=== PATIENT | female | born 1995 | race Caucasian/White ===

== ENCOUNTER 2019-04-09 19:07 | Emergency (ER) | payer MEDICAID ==
[2019-04-09 19:24] LABS: Appearance CLEAR (CLEAR); Bilirubin NEGATIVE (NEGATIVE); Blood NEGATIVE Ery/ul (0-5); Epithelial Cells RARE /HPF (FEW); Glucose NEGATIVE (NEGATIVE); Ketones NEGATIVE (NEGATIVE); Leukocyte Esterase TRACE (NEGATIVE); Mucus SLIGHT /HPF (NEGATIVE); Nitrite NEGATIVE (NEGATIVE); Protein,Urine Dip NEGATIVE (Negative); Specific Gravity 1.017 (1.005-1.025); Urobilinogen NEGATIVE mg/dL (0-1)
[2019-04-09] MEDS ORDERED: TORAdol 30 mg Injection IV ONE (19:34)
[2019-04-09] MEDS ORDERED: Sodium Chloride 0.9% 1000 ML 1,000 ML IV STA (19:34)
[2019-04-09] MEDS ORDERED: MORPHINE SULFATE 4 MG INJ IV ONE ×2 (19:34→21:34)
[2019-04-09] MEDS ORDERED: BENADRYL 50 MG/ML IV ONE (19:34)
--- NOTE | 2019-04-09 19:37 | ERPHSYRPT ---
- History of Present Illness Time Seen by Provider: 04/09/19 19:20 Historian: patient Exam Limitations: no limitations Patient Subjective Stated Complaint: pt states she has been having pain in the rt lower quad for 2 weeks. states the pain has been worse since last night. states she had an ectopic 2 yrs ago on the lt and this feels similar Triage Nursing Assessment: pt alert and oreinted, answers questions approp. pt ambulatory with steady gait noted. respirations nonlabored with lungs cta. skin pink wamr and dry. bowel sounds present in all 4 quads. Physician History: Patient has had right sided abdominal pain, worse at 03:00 on 04/09/2019. Pain has been intermittent and sharp in nature. Patient did not get evaluated anywhere or by anyone until this evening's emergency department visit. Timing/Duration: week(s) (2) Activities at Onset: activity (minimal exertion such as bending to sexual intercourse with her ) Abdominal Pain Onset Location: RUQ, RLQ (main location currently) Pain Radiation: RUQ, groin (right side), other (suprapubic) Severity of Pain-Max: severe Severity of Pain-Current: moderate Modifying Factors: Worsens With: movement, palpation, position Associated Symptoms: No back, No chest pain, No diaphoresis, No diarrhea, No fever/chills, No fatigue, No headache, No heartburn, No loss of appetite, No nausea, No neck pain, No rash, No shortness of breath, No syncope, No vomiting, No weakness Previous symptoms: same symptoms as today (had an ectopic requiring surgery on the left side two years ago), no recent treatment Allergies/Adverse Reactions: latex Allergy (Verified 04/09/19 19:28) Hx Tetanus, Diphtheria Vaccination/Date Given: Yes Hx Influenza Vaccination/Date Given: No Hx Pneumococcal Vaccination/Date Given: No Immunizations Up to Date: Yes - Review of Systems Constitutional: No Fever, No Chills, No Fatigue Eyes: No Symptoms Ears, Nose, & Throat: No Symptoms Respiratory: No Cough, No Dyspnea Cardiac: No Chest Pain, No Edema, No Palpitations, No Syncope Abdominal/Gastrointestinal: Abdominal Pain, No Nausea, No Vomiting, No Diarrhea , No Constipation, No Hematemesis, No Hematochezia, No Melena Genitourinary Symptoms: Vaginal Discharge, No Dysuria, No Frequency, No Hematuria, No Urgency, No Urinary Retention, No Flank Pain, No Vaginal Bleeding Musculoskeletal: No Back Pain, No Neck Pain Skin: No Rash Neurological: No Dizziness, No Focal Weakness, No Headache, No Paralysis, No Sensory Changes Psychological: No Symptoms Endocrine: No Symptoms Hematologic/Lymphatic: No Easy Bleeding, No Easy Bruising All Other Systems: Reviewed and Negative - Past Medical History Pertinent Past Medical History: Yes Other Medical History: hx of ectopic 2 yrs ago on lt - Past Surgical History Past Surgical History: Yes Female Surgical History: Other Other Surgical History: lt fallopian tube removed after ectopic - Social History Smoking Status: Former smoker Exposure to second hand smoke: Yes Drug Use: none Patient Lives Alone: No - Female History Hx Last Menstrual Period: 02/13/19 Hx Now: No (neg home test) - Nursing Vital Signs Nursing Vital Signs: Initial Vital Signs Temperature 98.5 F 04/09/19 19:15 Pulse Rate 75 04/09/19 19:15 Respiratory Rate 16 04/09/19 19:15 Blood Pressure 140/93 04/09/19 19:15 O2 Sat by Pulse Oximetry 100 04/09/19 19:15 Pain Scale Pain Intensity 2 - Physical Exam General Appearance: no apparent distress, alert Eye Exam: PERRL/EOMI, eyes nml inspection, No scleral icterus, No pale conjunctivae Ears, Nose, Throat Exam: normal ENT inspection, pharynx normal, moist mucous membranes Neck Exam: normal inspection, non-tender, supple, full range of motion, No meningismus, No Brudzinski, No lymphadenopathy Respiratory Exam: normal breath sounds, lungs clear, airway intact, No respiratory distress, No diminished breath sounds, No accessory muscle use, No prolonged expirations, No crackles/rales, No rhonchi, No wheezing, No stridor Cardiovascular Exam: regular rate/rhythm, normal heart sounds, normal peripheral pulses, capillary refill <2 sec Gastrointestinal/Abdomen Exam: soft, normal bowel sounds, tenderness (RLQ), No distention, No mass, No guarding, No rebound Pelvic Exam: normal external exam, other (chaperoned by Laurel Alcazar RN), No adnexal tenderness, No adnexal mass, No mass, No cervical motion tenderness, No vaginal bleeding, No uterine tenderness, No vaginal discharge Back Exam: normal inspection, normal range of motion, No CVA tenderness, No vertebral tenderness, No rash Extremity Exam: normal inspection, normal range of motion, pelvis stable, No calf tenderness, No eloy's sign, No pedal edema, No swelling Neurologic Exam: alert, oriented x 3, cooperative, 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 Liver: Periportal edema. Otherwise unremarkable. Gallbladder bile ducts: Unremarkable. Pancreas: Unremarkable. Spleen: Unremarkable. Adrenal, kidneys , ureters, stomach, and bowel: Unremarkable with no traction. Appendix no evidence of appendicitis. Intraperitoneal: Minimal free fluid in the pelvis. No free air. Vasculature: Unremarkable. Lymph nodes: No enlarged lymph nodes. Bladder: Unremarkable. Reproductive: Unremarkable./Joints: Unremarkable. No acute fracture. Soft tissue: Unremarkable. Overall impression: No evidence of appendicitis. Periportal edema.) - Radiology Ultrasound Exam Pelvis Ultrasound: negative, No Torsion/Nml Flow Ordered Tests: Active Orders 24 hr Category Date Time Status IV Insertion STAT Care 04/09/19 19:24 Active NPO (ED) STAT Care 04/09/19 19:34 Active Pelvic Exam Assist STAT Care 04/09/19 19:34 Active ABDOMEN AND PELVIS W CONTRAST [CT] Stat Exams 04/09/19 22:22 Taken PELVIC [US] Stat Exams 04/09/19 20:14 Taken AMYLASE Stat Lab 04/09/19 19:54 Completed CBC W DIFF Stat Lab 04/09/19 19:54 Completed CMP Stat Lab 04/09/19 19:54 Completed HCG,QUALITATIVE URINE Stat Lab 04/09/19 19:21 Completed LIPASE Stat Lab 04/09/19 19:54 Completed Lactic Acid Stat Lab 04/09/19 21:38 Completed PROTIME WITH INR Stat Lab 04/09/19 19:54 Completed TROPONIN Q3H Lab 04/09/19 19:54 Completed TROPONIN Q3H Lab 04/10/19 01:45 Ordered TROPONIN Q3H Lab 04/10/19 04:45 Ordered TROPONIN Q3H Lab 04/10/19 07:45 Ordered UA W/RFX UR CULTURE Stat Lab 04/09/19 19:21 Completed Urine Triage Profile Stat Lab 04/09/19 19:49 Completed Wet Prep Stat Lab 04/09/19 19:35 Completed Medication Summary Discontinued Medications Generic Name Dose Route Start Last Admin Trade Name Freq PRN Reason Stop Dose Admin Diphenhydramine HCl 25 mg 04/09/19 19:34 04/09/19 19:49 Benadryl 50 Mg/Ml IV 04/09/19 19:35 25 mg STAT ONE Administration Diphenhydramine HCl Confirm 04/09/19 19:39 Benadryl 50 Mg/Ml Administered 04/09/19 19:40 Dose 50 mg .ROUTE .STK-MED ONE Sodium Chloride 1,000 mls @ 999 mls/hr 04/09/19 19:34 04/09/19 20:49 Sodium Chloride 0.9% 1000 Ml IV 04/09/19 20:34 Infused .Q1H1M STA Infusion Sodium Chloride Confirm 04/09/19 19:41 Sodium Chloride 0.9% 1000 Ml Administered 04/09/19 19:42 Dose 1,000 mls @ ud .ROUTE .STK-MED ONE Ketorolac Tromethamine 30 mg 04/09/19 19:34 04/09/19 19:48 Toradol 30 Mg Injection IV 04/09/19 19:35 30 mg STAT ONE Administration Ketorolac Tromethamine Confirm 04/09/19 19:40 Toradol 30 Mg Injection Administered 04/09/19 19:41 Dose 30 mg .ROUTE .STK-MED ONE Morphine Sulfate 4 mg 04/09/19 19:34 04/09/19 19:47 Morphine Sulfate 4 Mg Inj IV 04/09/19 19:35 4 mg STAT ONE Administration Morphine Sulfate Confirm 04/09/19 19:41 Morphine Sulfate 4 Mg Inj Administered 04/09/19 19:42 Dose 4 mg .ROUTE .STK-MED ONE Morphine Sulfate 4 mg 04/09/19 21:34 04/09/19 21:38 Morphine Sulfate 4 Mg Inj IV 04/09/19 21:35 4 mg STAT ONE Administration Morphine Sulfate Confirm 04/09/19 21:37 Morphine Sulfate 4 Mg Inj Administered 04/09/19 21:38 Dose 4 mg .ROUTE .STK-MED ONE Lab/Rad Data: Laboratory Result Diagrams 04/09/19 19:54 04/09/19 19:54 Laboratory Results 04/09/19 04/09/19 04/09/19 Range/Units 21:38 19:54 19:54 WBC (4.0-10.5) K/mm3 RBC (4.1-5.4) M/mm3 Hgb (12.0-16.0) gm/dl Hct (35-47) % MCV (78-100) fl MCH (26-32) pg MCHC (32-36) g/dl RDW (11.5-14.0) % Plt Count (150-450) K/mm3 MPV (6-9.5) fl Gran % (36.0-66.0) % Eos # (Auto) (0-0.5) Absolute Lymphs (auto) (1.0-4.6) Absolute Monos (auto) (0.0-1.3) Lymphocytes % (24.0-44.0) % Monocytes % (0.0-12.0) % Eosinophils % (0.00-5.0) % Basophils % (0.0-0.4) % Absolute Granulocytes (1.4-6.9) Basophils # (0-0.4) PT 12.7 H (9.95-12.35) SECONDS INR 1.12 (0.8-3.0) Sodium (137-145) mmol/L Potassium (3.5-5.1) mmol/L Chloride (98-107) mmol/L Carbon Dioxide (22-30) mmol/L Anion Gap (5-15) MEQ/L BUN (7-17) mg/dL Creatinine (0.52-1.04) mg/dL Estimated GFR ML/MIN Glucose (74-106) mg/dL Lactic Acid 1.0 (0.4-2.0) Calcium (8.4-10.2) mg/dL Total Bilirubin (0.2-1.3) mg/dL AST (14-36) U/L ALT (0-35) U/L Alkaline Phosphatase (38-126) U/L Troponin I < 0.012 (0.000-0.034) ng/mL Serum Total Protein (6.3-8.2) g/dL Albumin (3.5-5.0) g/dL Amylase (30-110) U/L Lipase (23-300) U/L Urine Color (YELLOW) Urine Appearance (CLEAR) Urine pH (5-6) Ur Specific [place] (1.005-1.025) Urine Protein (Negative) Urine Ketones (NEGATIVE) Urine Blood (0-5) Romeo/ul Urine Nitrite (NEGATIVE) Urine Bilirubin (NEGATIVE) Urine Urobilinogen (0-1) mg/dL Ur Leukocyte Esterase (NEGATIVE) Urine WBC (Auto) (0-5) /HPF Urine RBC (Auto) (0-2) /HPF U Epithel Cells (Auto) (FEW) /HPF Urine Bacteria (Auto) (NEGATIVE) /HPF Urine Mucus (Auto) (NEGATIVE) /HPF Urine Culture Reflexed (NO) Urine Glucose (NEGATIVE) mg/dL Urine HCG, Qual (Negative) WBC (Wet Prep) RBC (Wet Prep) Epi Cells (Wet Prep) Bacteria (Wet Prep) Clue Cells (Wet Prep) Trichomonas (Wet Prep) Budding Yeast (Wet Prp) Urine Opiates Level (NEGATIVE) Ur Methadone (NEGATIVE) Urine Barbiturates (NEGATIVE) Ur Phencyclidine (PCP) (NEGATIVE) Urine Amphetamine (NEGATIVE) U Benzodiazepine Level (NEGATIVE) Urine Cocaine (NEGATIVE) Urine Marijuana (THC) (NEGATIVE) Chlamydia DNA (PCR) N.gonorrhoeae DNA Probe Slides for Path Review 04/09/19 04/09/19 04/09/19 Range/Units 19:54 19:54 19:49 WBC 7.2 (4.0-10.5) K/mm3 RBC 4.49 (4.1-5.4) M/mm3 Hgb 13.2 (12.0-16.0) gm/dl Hct 40.2 (35-47) % MCV 89.5 (78-100) fl MCH 29.4 (26-32) pg MCHC 32.8 (32-36) g/dl RDW 13.5 (11.5-14.0) % Plt Count 173 (150-450) K/mm3 MPV 12.9 H (6-9.5) fl Gran % 63.8 (36.0-66.0) % Eos # (Auto) 0.20 (0-0.5) Absolute Lymphs (auto) 1.76 (1.0-4.6) Absolute Monos (auto) 0.63 (0.0-1.3) Lymphocytes % 24.5 (24.0-44.0) % Monocytes % 8.8 (0.0-12.0) % Eosinophils % 2.8 (0.00-5.0) % Basophils % 0.1 (0.0-0.4) % Absolute Granulocytes 4.58 (1.4-6.9) Basophils # 0.01 (0-0.4) PT (9.95-12.35) SECONDS INR (0.8-3.0) Sodium 143 (137-145) mmol/L Potassium 3.7 (3.5-5.1) mmol/L Chloride 105 (98-107) mmol/L Carbon Dioxide 29 (22-30) mmol/L Anion Gap 13.1 (5-15) MEQ/L BUN 10 (7-17) mg/dL Creatinine 0.83 (0.52-1.04) mg/dL Estimated GFR > 60.0 ML/MIN Glucose 94 (74-106) mg/dL Lactic Acid (0.4-2.0) Calcium 9.5 (8.4-10.2) mg/dL Total Bilirubin 0.40 (0.2-1.3) mg/dL AST 21 (14-36) U/L ALT 13 (0-35) U/L Alkaline Phosphatase 56 (38-126) U/L Troponin I (0.000-0.034) ng/mL Serum Total Protein 8.0 (6.3-8.2) g/dL Albumin 4.5 (3.5-5.0) g/dL Amylase 51 (30-110) U/L Lipase 36 (23-300) U/L Urine Color (YELLOW) Urine Appearance (CLEAR) Urine pH (5-6) Ur Specific [place] (1.005-1.025) Urine Protein (Negative) Urine Ketones (NEGATIVE) Urine Blood (0-5) Romeo/ul Urine Nitrite (NEGATIVE) Urine Bilirubin (NEGATIVE) Urine Urobilinogen (0-1) mg/dL Ur Leukocyte Esterase (NEGATIVE) Urine WBC (Auto) (0-5) /HPF Urine RBC (Auto) (0-2) /HPF U Epithel Cells (Auto) (FEW) /HPF Urine Bacteria (Auto) (NEGATIVE) /HPF Urine Mucus (Auto) (NEGATIVE) /HPF Urine Culture Reflexed (NO) Urine Glucose (NEGATIVE) mg/dL Urine HCG, Qual (Negative) WBC (Wet Prep) RBC (Wet Prep) Epi Cells (Wet Prep) Bacteria (Wet Prep) Clue Cells (Wet Prep) Trichomonas (Wet Prep) Budding Yeast (Wet Prp) Urine Opiates Level NEGATIVE (NEGATIVE) Ur Methadone NEGATIVE (NEGATIVE) Urine Barbiturates NEGATIVE (NEGATIVE) Ur Phencyclidine (PCP) NEGATIVE (NEGATIVE) Urine Amphetamine NEGATIVE (NEGATIVE) U Benzodiazepine Level NEGATIVE (NEGATIVE) Urine Cocaine NEGATIVE (NEGATIVE) Urine Marijuana (THC) NEGATIVE (NEGATIVE) Chlamydia DNA (PCR) N.gonorrhoeae DNA Probe Slides for Path Review YES 04/09/19 04/09/19 04/09/19 Range/Units 19:49 19:35 19:21 WBC (4.0-10.5) K/mm3 RBC (4.1-5.4) M/mm3 Hgb (12.0-16.0) gm/dl Hct (35-47) % MCV (78-100) fl MCH (26-32) pg MCHC (32-36) g/dl RDW (11.5-14.0) % Plt Count (150-450) K/mm3 MPV (6-9.5) fl Gran % (36.0-66.0) % Eos # (Auto) (0-0.5) Absolute Lymphs (auto) (1.0-4.6) Absolute Monos (auto) (0.0-1.3) Lymphocytes % (24.0-44.0) % Monocytes % (0.0-12.0) % Eosinophils % (0.00-5.0) % Basophils % (0.0-0.4) % Absolute Granulocytes (1.4-6.9) Basophils # (0-0.4) PT (9.95-12.35) SECONDS INR (0.8-3.0) Sodium (137-145) mmol/L Potassium (3.5-5.1) mmol/L Chloride (98-107) mmol/L Carbon Dioxide (22-30) mmol/L Anion Gap (5-15) MEQ/L BUN (7-17) mg/dL Creatinine (0.52-1.04) mg/dL Estimated GFR ML/MIN Glucose (74-106) mg/dL Lactic Acid (0.4-2.0) Calcium (8.4-10.2) mg/dL Total Bilirubin (0.2-1.3) mg/dL AST (14-36) U/L ALT (0-35) U/L Alkaline Phosphatase (38-126) U/L Troponin I (0.000-0.034) ng/mL Serum Total Protein (6.3-8.2) g/dL Albumin (3.5-5.0) g/dL Amylase (30-110) U/L Lipase (23-300) U/L Urine Color YELLOW (YELLOW) Urine Appearance CLEAR (CLEAR) Urine pH 7.0 (5-6) Ur Specific [place] 1.017 (1.005-1.025) Urine Protein NEGATIVE (Negative) Urine Ketones NEGATIVE (NEGATIVE) Urine Blood NEGATIVE (0-5) Romeo/ul Urine Nitrite NEGATIVE (NEGATIVE) Urine Bilirubin NEGATIVE (NEGATIVE) Urine Urobilinogen NEGATIVE (0-1) mg/dL Ur Leukocyte Esterase TRACE (NEGATIVE) Urine WBC (Auto) NONE (0-5) /HPF Urine RBC (Auto) NONE (0-2) /HPF U Epithel Cells (Auto) RARE (FEW) /HPF Urine Bacteria (Auto) NONE (NEGATIVE) /HPF Urine Mucus (Auto) SLIGHT (NEGATIVE) /HPF Urine Culture Reflexed NO (NO) Urine Glucose NEGATIVE (NEGATIVE) mg/dL Urine HCG, Qual (Negative) WBC (Wet Prep) Rare RBC (Wet Prep) Rare Epi Cells (Wet Prep) Rare Bacteria (Wet Prep) None Seen Clue Cells (Wet Prep) None Seen Trichomonas (Wet Prep) None Seen Budding Yeast (Wet Prp) None Seen Urine Opiates Level (NEGATIVE) Ur Methadone (NEGATIVE) Urine Barbiturates (NEGATIVE) Ur Phencyclidine (PCP) (NEGATIVE) Urine Amphetamine (NEGATIVE) U Benzodiazepine Level (NEGATIVE) Urine Cocaine (NEGATIVE) Urine Marijuana (THC) (NEGATIVE) Chlamydia DNA (PCR) NEGATIVE N.gonorrhoeae DNA Probe NEGATIVE Slides for Path Review 04/09/19 Range/Units 19:21 WBC (4.0-10.5) K/mm3 RBC (4.1-5.4) M/mm3 Hgb (12.0-16.0) gm/dl Hct (35-47) % MCV (78-100) fl MCH (26-32) pg MCHC (32-36) g/dl RDW (11.5-14.0) % Plt Count (150-450) K/mm3 MPV (6-9.5) fl Gran % (36.0-66.0) % Eos # (Auto) (0-0.5) Absolute Lymphs (auto) (1.0-4.6) Absolute Monos (auto) (0.0-1.3) Lymphocytes % (24.0-44.0) % Monocytes % (0.0-12.0) % Eosinophils % (0.00-5.0) % Basophils % (0.0-0.4) % Absolute Granulocytes (1.4-6.9) Basophils # (0-0.4) PT (9.95-12.35) SECONDS INR (0.8-3.0) Sodium (137-145) mmol/L Potassium (3.5-5.1) mmol/L Chloride (98-107) mmol/L Carbon Dioxide (22-30) mmol/L Anion Gap (5-15) MEQ/L BUN (7-17) mg/dL Creatinine (0.52-1.04) mg/dL Estimated GFR ML/MIN Glucose (74-106) mg/dL Lactic Acid (0.4-2.0) Calcium (8.4-10.2) mg/dL Total Bilirubin (0.2-1.3) mg/dL AST (14-36) U/L ALT (0-35) U/L Alkaline Phosphatase (38-126) U/L Troponin I (0.000-0.034) ng/mL Serum Total Protein (6.3-8.2) g/dL Albumin (3.5-5.0) g/dL Amylase (30-110) U/L Lipase (23-300) U/L Urine Color (YELLOW) Urine Appearance (CLEAR) Urine pH (5-6) Ur Specific [place] (1.005-1.025) Urine Protein (Negative) Urine Ketones (NEGATIVE) Urine Blood (0-5) Romeo/ul Urine Nitrite (NEGATIVE) Urine Bilirubin (NEGATIVE) Urine Urobilinogen (0-1) mg/dL Ur Leukocyte Esterase (NEGATIVE) Urine WBC (Auto) (0-5) /HPF Urine RBC (Auto) (0-2) /HPF U Epithel Cells (Auto) (FEW) /HPF Urine Bacteria (Auto) (NEGATIVE) /HPF Urine Mucus (Auto) (NEGATIVE) /HPF Urine Culture Reflexed (NO) Urine Glucose (NEGATIVE) mg/dL Urine HCG, Qual NEGATIVE (Negative) WBC (Wet Prep) RBC (Wet Prep) Epi Cells (Wet Prep) Bacteria (Wet Prep) Clue Cells (Wet Prep) Trichomonas (Wet Prep) Budding Yeast (Wet Prp) Urine Opiates Level (NEGATIVE) Ur Methadone (NEGATIVE) Urine Barbiturates (NEGATIVE) Ur Phencyclidine (PCP) (NEGATIVE) Urine Amphetamine (NEGATIVE) U Benzodiazepine Level (NEGATIVE) Urine Cocaine (NEGATIVE) Urine Marijuana (THC) (NEGATIVE) Chlamydia DNA (PCR) N.gonorrhoeae DNA Probe Slides for Path Review - Progress Progress: improved Progress Note: 04/09/19 21:34 Pain has returned to a 7/10. Morphine 4mg IV times one will be given since Toradol was already given. 04/09/19 23:12 Pain has improved. No tenderness of any specific quadrant. With pain being present and the periportal edema seen on CT scan, this may be the cause of her pain. 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 Patient will be given referral to Gastroenterology specialist due to periportal edema seen on CT scan as well as a primary care physician as patient does not have a primary care provider. Counseled pt/family regarding: lab results, diagnosis, need for follow-up, rad results - Departure Departure Disposition: Home Clinical Impression: RLQ abdominal pain Condition: Good Critical Care Time: No Referrals: LANA BROWN [ACTIVE STAFF] - 04/10/19 (Primary Care Physician referral for your reference) DOCTOR,NO FAMILY [Primary Care Provider] - MAYRA BENOIT MD [NON-STAFF PHY W/O PRIVILEGES] - 04/10/19 ( Operations Label Clerk for your specialist to follow-up your periportal edema and abdominal pain) Instructions: Acute Abdomen (Belly Pain), Adult (DC) Additional Instructions: Discharge/Care Plan KASH CULP was seen on 04/09/19 in the Emergency Room. The patient was counseled regarding Diagnosis,Lab results, Imaging studies, need for follow up and when to return to the Emergency Room. Your examination, lab results, ultrasound, and CT scan did not show a reason for your pain at this time, but there was some periportal edema seen on the CT scan at your liver. Followup with the primary care physician and GI specialist referrals on 04/10/2019. return immediately back to the emergency Department if any worsening pain,new fever, no urinary symptoms, change in bowel habits, or any other concerning signs or symptoms that were not present at today's emergency department visit for immediate reevaluation in the emergency department. Prescriptions given: Lodine 400mg twice a day as needed for pain Discharge Note I have spoken with the patient and family. I have explained the patient's condition, diagnosis and treatment plan based on the information available to me at this time. I have answered the patient's and family's questions and addressed any concerns. The patient and family have as good understanding of the patient's diagnosis, condition and treatment plan as can be expected at this point. The vital signs have been stable. The patient's condition is stable and appropriate for discharge from the emergency department. The patient will pursue further outpatient evaluation with the primary care physician or other designated or consulting physician as outlined in the discharge instructions. The patient and family are agreeable to this plan of care and follow-up instructions have been explained in detail. The patient and family have received these instruction. The patientand family are aware that any significant change in condition or worsening of symptoms should prompt an immediate return to this or the closest emergency department or call 911. Prescriptions: Etodolac 400 mg [Lodine 400 mg] 400 mg PO BID PRN PRN #20 tablet PRN Reason: Pain
[2019-04-09] MEDS ORDERED: BENADRYL 50 MG/ML ONE (19:39)
[2019-04-09] MEDS ORDERED: TORAdol 30 mg Injection ONE (19:40)
[2019-04-09] MEDS ORDERED: Sodium Chloride 0.9% 1000 ML 1,000 ML ONE (19:41)
[2019-04-09] MEDS ORDERED: MORPHINE SULFATE 4 MG INJ ONE ×2 (19:41→21:37)
[2019-04-09 19:57] LABS: Absolute Neutrophil Ct (ANC) 4.58 (1.4-6.9); BASOPHIL % 0.1 % (0.0-0.4); Basophil (Absolute #) 0.01 (0-0.4); Eosinophil % 2.8 % (0.00-5.0); Hematocrit 40.2 % (35-47); Hemoglobin 13.2 gm/dl (12.0-16.0); Lymphocyte (Absolute #) 1.76 (1.0-4.6); Lymphocytes % 24.5 % (24.0-44.0); Mean Cell Volume 89.5 fl (78-100); Mean Corpuscular Hemoglobin 29.4 pg (26-32); Mean Corpuscular Hgb Concent. 32.8 g/dl (32-36); Mean Platelet Volume 12.9 fl (6-9.5); Monocyte (Absolute #) 0.63 (0.0-1.3); Monocytes % 8.8 % (0.0-12.0); Neutrophil % 63.8 % (36.0-66.0); Platelet Count 173 K/mm3 (150-450); Red Blood Count 4.49 M/mm3 (4.1-5.4); Red Cell Distribution Width 13.5 % (11.5-14.0); White Blood Count 7.2 K/mm3 (4.0-10.5)
[2019-04-09 20:01] LABS: Amphetamine,Urine NEGATIVE (NEGATIVE); Barbiturate,Urine NEGATIVE (NEGATIVE); Benzodiazepine,Urine NEGATIVE (NEGATIVE); Cocaine,Urine NEGATIVE (NEGATIVE); Methadone,Urine NEGATIVE (NEGATIVE); Opiate,Urine NEGATIVE (NEGATIVE); PCP,Urine NEGATIVE (NEGATIVE); THC,Urine NEGATIVE (NEGATIVE)
[2019-04-09 20:10] LABS: ALBUMIN 4.5 g/dL (3.5-5.0); ALKALINE PHOSPHATASE 56 U/L (38-126); AMYLASE 51 U/L (30-110); ANION GAP 13.1 MEQ/L (5-15); BLOOD UREA NITROGEN 10 mg/dL (7-17); CHLORIDE 105 mmol/L (98-107); Calcium 9.5 mg/dL (8.4-10.2); Carbon Dioxide 29 mmol/L (22-30); Creatinine 1 0.83 mg/dL (0.52-1.04); Glucose 94 mg/dL (74-106); LIPASE 36 U/L (23-300); Potassium 3.7 mmol/L (3.5-5.1); SGOT/AST 21 U/L (14-36); SGPT/ALT 13 U/L (0-35); SODIUM 143 mmol/L (137-145)
[2019-04-09 20:12] LABS: INR 1.12 (0.8-3.0); PROTIME 12.7 SECONDS (9.95-12.35)
[2019-04-09 20:43] LABS: Bacteria None Seen; Clue Cells None Seen; Trichomonas None Seen
[2019-04-09 20:44] LABS: Red Blood Cells Rare; White Blood Cells Rare; Yeast None Seen
[2019-04-09 20:48] LABS: Slide Review 1 YES
[2019-04-09 21:43] LABS: CHLAMYDIA DNA NEGATIVE; N GONORRHOEAE DNA NEGATIVE
[2019-04-09 22:59] VITALS: PULSE 64
[2019-04-09 23:30] VITALS: BP 118/76
[2019-04-09 23:32] VITALS: O2SAT 100
--- NOTE | 2019-04-10 09:08 | XRAY ---
Indication: Right lower quadrant pain. Multiple contiguous axial images obtained through the abdomen and pelvis using 80 cc Isovue 370 contrast only. Comparison: None. Lung bases demonstrate minimal bilateral dependent atelectasis and tiny bibasilar calcified granulomas. No infiltrate or effusion. Heart is not enlarged. Noncontrasted stomach and bowel loops appear nonobstructed. Normal appendix. Tiny cul-de-sac fluid presumed physiologic from rupture/leaking cyst. Remaining liver, gallbladder, pancreas, spleen, adrenal glands, kidneys, ureters, bladder, uterus, and aorta appear unremarkable. No pathologic retroperitoneal lymphadenopathy. Osseous structures intact. Impression: 1. Tiny cul-de-sac fluid presumed physiologic. 2. Remaining CT abdomen/pelvis with contrast exam is negative. Comment: Preliminary interpretation was made by [facility]. No discrepancy. CT DI 6.53
--- NOTE | 2019-04-10 09:15 | XRAY ---
Indication: Right lower quadrant pain. Two-dimensional transvaginal pelvic sonogram performed. Comparison: None Uterus anteverted measuring 7.9 x 4.0 x 5.1 cm. Myometrium homogeneous. Endometrial stripe measures 9.9 mm. No endometrial cavity mass or fluid collection. Right ovary measures 3.6 x 2.4 x 4.0 cm and the left measures 2.9 x 1.7 x 2.4 cm with normal perfusion bilaterally. There are multiple tiny bilateral ovary cysts, several appearing peripheral possibly polycystic ovary syndrome. Small cul-de-sac fluid presumed physiologic from rupture/leaking cyst. Impression: 1. Multiple tiny bilateral ovary cysts. Rule out polycystic ovary syndrome. 2. Small cul-de-sac fluid presumed physiologic. 3. Remaining transvaginal pelvic sonogram is negative. Comment: Preliminary report was given.
== END 2019-04-09 23:41 | disposition home or self-care (01) ==
LOC: ED 19:07
DX: R10.31 Right lower quadrant pain (principal)
CPT/HCPCS: 36000; 36415; 74177; 76856; 80053; 80307; 81001; 82150; 83605; 83690; 84484; 84703; 85025; 85610; 87210; 87490; 87590; 96374; 96375; 96376; 99284; J1200; J1885; J2270

== ENCOUNTER 2020-06-17 12:40 | Emergency (ER) | payer OTHER ==
[2020-06-17] MEDS ORDERED: Zofran 4 MG/2 ML VIAL IV ONE (12:47)
[2020-06-17] MEDS ORDERED: Sodium Chloride 0.9% 1000 ML 1,000 ML IV STA (12:47)
[2020-06-17] MEDS ORDERED: Zofran 4 MG/2 ML VIAL ONE (12:56)
[2020-06-17] MEDS ORDERED: Sodium Chloride 0.9% 1000 ML 1,000 ML ONE (12:56)
[2020-06-17 13:12] LABS: Absolute Neutrophil Ct (ANC) 6.07 (1.4-6.9); BASOPHIL % 0.1 % (0.0-0.4); Basophil (Absolute #) 0.01 (0-0.4); Eosinophil % 0.7 % (0.00-5.0); Eosinophil (Absolute #) 0.06 (0-0.5); Hematocrit 36.9 % (35-47); Hemoglobin 12.5 gm/dl (12.0-16.0); Lymphocyte (Absolute #) 1.43 (1.0-4.6); Lymphocytes % 17.3 % (24.0-44.0); Mean Cell Volume 88.3 fl (78-100); Mean Corpuscular Hemoglobin 29.9 pg (26-32); Mean Corpuscular Hgb Concent. 33.9 g/dl (32-36); Monocyte (Absolute #) 0.69 (0.0-1.3); Monocytes % 8.4 % (0.0-12.0); Neutrophil % 73.5 % (36.0-66.0); Platelet Count 177 K/mm3 (150-450); Red Blood Count 4.18 M/mm3 (4.1-5.4); White Blood Count 8.3 K/mm3 (4.0-10.5)
--- NOTE | 2020-06-17 13:22 | ERPHSYRPT ---
- History of Present Illness Time Seen by Provider: 06/17/20 13:05 Historian: patient Exam Limitations: no limitations Patient Subjective Stated Complaint: " I have had nausea and vomiting for three days. I can't keep any food or fluids down and I'm 14 weeks . I got tested for Covid yesterday and my result are pending." Triage Nursing Assessment: Pt presents to ER with complaints of nausea, vomiting, diarrhea and abdominal cramping x3 days. Pt is alert and oriented x3. Denies shortness of breath or pain. Does state she was tested for Covid yesterday, pending result. Pt states she is 14 weeks . Pt skin is pink, warm, and dry. Respirations unlabored at this time. Abdomen is soft and nontender. Pt states she hasn't been able to keep anything down for the past 3 days and has vomited multiple times. Physician History: Patient is a 24-year-old female patient who is G5, that presents with abdo thierry pain, nausea vomiting diarrhea. Patient is currently at 14 weeks gestation. Patient has been having the symptoms for the last 3 days and was recently tested for Covid 19. The results are pending. Patient states that her vomiting has gotten worse and so is here for evaluation. Patient denies fever. Patient does mention of weakness and anorexia. Timing/Duration: day(s) (2) Activities at Onset: none Quality: cramping Abdominal Pain Onset Location: generalized abdomen Severity of Pain-Max: moderate Severity of Pain-Current: severe Modifying Factors: Improves With: vomiting Associated Symptoms: diarrhea, nausea, vomiting, weakness Previous symptoms: same symptoms as today (Hx of hyperemesis gravidarum) Allergies/Adverse Reactions: latex Allergy (Verified 04/09/19 19:28) Home Medications: Vits W-Ca,Fe,FA(<1Mg) [] 1 tab PO DAILY 06/17/20 [History] ondansetron HCL [Ondansetron HCl] 8 mg PO BID PRN PRN 06/17/20 [History] Hx Tetanus, Diphtheria Vaccination/Date Given: Yes Hx Influenza Vaccination/Date Given: Yes Hx Pneumococcal Vaccination/Date Given: No Immunizations Up to Date: Yes Travel Risk - International Travel Have you traveled outside of the country in past 3 weeks: No - Coronavirus Screening Are you exhibiting any of the following symptoms?: Yes Symptoms: Vomiting/Diarrhea, Loss of Taste or Smell Close contact with a COVID-19 positive Pt in past 14-21 Days: No - Review of Systems Constitutional: Weakness, No Fever, No Chills Eyes: No Symptoms Ears, Nose, & Throat: No Symptoms Respiratory: No Cough, No Dyspnea Cardiac: No Chest Pain, No Edema, No Syncope Abdominal/Gastrointestinal: Abdominal Pain, Nausea, Vomiting, Diarrhea Genitourinary Symptoms: No Dysuria Musculoskeletal: No Back Pain, No Neck Pain Skin: No Rash Neurological: No Dizziness, No Focal Weakness, No Sensory Changes Psychological: No Symptoms Endocrine: No Symptoms All Other Systems: Reviewed and Negative - Past Medical History Pertinent Past Medical History: Yes Other Medical History: hx of ectopic 2 yrs ago on lt - Past Surgical History Past Surgical History: Yes Female Surgical History: Other Other Surgical History: lt fallopian tube removed after ectopic - Social History Smoking Status: Former smoker Exposure to second hand smoke: No Drug Use: none Patient Lives Alone: No - Female History Hx Now: Yes Expected Date of Delivery: 12/19/20 - Nursing Vital Signs Nursing Vital Signs: Initial Vital Signs Temperature 97.8 F 06/17/20 12:42 Pulse Rate 93 H 06/17/20 12:42 Respiratory Rate 16 06/17/20 12:42 Blood Pressure 123/92 06/17/20 12:42 O2 Sat by Pulse Oximetry 94 L 06/17/20 12:42 Pain Scale Pain Intensity 0 - Physical Exam General Appearance: no apparent distress, alert Eye Exam: PERRL/EOMI, eyes nml inspection Ears, Nose, Throat Exam: normal ENT inspection, pharynx normal, dry mucous membranes Neck Exam: normal inspection, non-tender, supple, full range of motion Respiratory Exam: normal breath sounds, lungs clear, No respiratory distress Cardiovascular Exam: regular rate/rhythm, normal heart sounds Gastrointestinal/Abdomen Exam: soft, No tenderness, No mass Back Exam: normal inspection, normal range of motion, No CVA tenderness, No vertebral tenderness Extremity Exam: normal inspection, normal range of motion, pelvis stable Neurologic Exam: alert, oriented x 3, cooperative, normal mood/affect, nml cerebellar function, sensation nml, No motor deficits Skin Exam: normal color, warm, dry SpO2 Interpretation: normal SpO2: 94 - Course Nursing assessment & vital signs reviewed: Yes Ordered Tests: Active Orders 24 hr Category Date Time Status IV Insertion STAT Care 06/17/20 12:47 Active CBC W DIFF Stat Lab 06/17/20 13:00 Completed CMP Stat Lab 06/17/20 12:47 Completed CULTURE,URINE Stat Lab 06/17/20 13:41 Received Lactic Acid Stat Lab 06/17/20 12:54 Completed UA W/RFX UR CULTURE Stat Lab 06/17/20 13:41 Completed Medication Summary Discontinued Medications Generic Name Dose Route Start Last Admin Trade Name Ekaterina PRN Reason Stop Dose Admin Sodium Chloride 1,000 mls @ 999 mls/hr 06/17/20 12:47 06/17/20 13:59 Sodium Chloride 0.9% 1000 Ml IV 06/17/20 13:47 Infused .Q1H1M STA Infusion Sodium Chloride Confirm 06/17/20 12:56 Sodium Chloride 0.9% 1000 Ml Administered 06/17/20 12:57 Dose 1,000 mls @ ud .ROUTE .STK-MED ONE Metoclopramide HCl 10 mg 06/17/20 14:05 06/17/20 14:07 Reglan 10 Mg/2 Ml IV 06/17/20 14:06 10 mg STAT ONE Administration Metoclopramide HCl Confirm 06/17/20 14:06 Reglan 10 Mg/2 Ml Administered 06/17/20 14:07 Dose 10 mg .ROUTE .STK-MED ONE Ondansetron HCl 4 mg 06/17/20 12:47 06/17/20 12:58 Zofran 4 Mg/2 Ml Vial IV 06/17/20 12:48 4 mg STAT ONE Administration Ondansetron HCl Confirm 06/17/20 12:56 Zofran 4 Mg/2 Ml Vial Administered 06/17/20 12:57 Dose 4 mg .ROUTE .STK-MED ONE Lab/Rad Data: Laboratory Result Diagrams 06/17/20 13:00 06/17/20 12:47 Laboratory Results 06/17/20 06/17/20 06/17/20 Range/Units 13:41 13:00 12:54 WBC 8.3 (4.0-10.5) K/mm3 RBC 4.18 (4.1-5.4) M/mm3 Hgb 12.5 (12.0-16.0) gm/dl Hct 36.9 (35-47) % MCV 88.3 (78-100) fl MCH 29.9 (26-32) pg MCHC 33.9 (32-36) g/dl RDW 13.0 (11.5-14.0) % Plt Count 177 (150-450) K/mm3 MPV 13.0 H (7.5-11.0) fl Gran % 73.5 H (36.0-66.0) % Eos # (Auto) 0.06 (0-0.5) Absolute Lymphs (auto) 1.43 (1.0-4.6) Absolute Monos (auto) 0.69 (0.0-1.3) Lymphocytes % 17.3 L (24.0-44.0) % Monocytes % 8.4 (0.0-12.0) % Eosinophils % 0.7 (0.00-5.0) % Basophils % 0.1 (0.0-0.4) % Absolute Granulocytes 6.07 (1.4-6.9) Basophils # 0.01 (0-0.4) Sodium (137-145) mmol/L Potassium (3.5-5.1) mmol/L Chloride (98-107) mmol/L Carbon Dioxide (22-30) mmol/L Anion Gap (5-15) MEQ/L BUN (7-17) mg/dL Creatinine (0.52-1.04) mg/dL Estimated GFR ML/MIN Glucose (74-106) mg/dL Lactic Acid 0.8 (0.4-2.0) Calcium (8.4-10.2) mg/dL Total Bilirubin (0.2-1.3) mg/dL AST (14-36) U/L ALT (0-35) U/L Alkaline Phosphatase (38-126) U/L Serum Total Protein (6.3-8.2) g/dL Albumin (3.5-5.0) g/dL Urine Color YELLOW (YELLOW) Urine Appearance SLIGHTLY CLOUDY (CLEAR) Urine pH 6.0 (5-6) Ur Specific [place] 1.021 (1.005-1.025) Urine Protein NEGATIVE (Negative) Urine Ketones TRACE (NEGATIVE) Urine Blood NEGATIVE (0-5) Romeo/ul Urine Nitrite NEGATIVE (NEGATIVE) Urine Bilirubin NEGATIVE (NEGATIVE) Urine Urobilinogen NEGATIVE (0-1) mg/dL Ur Leukocyte Esterase LARGE (NEGATIVE) Urine WBC (Auto) 16-25 (0-5) /HPF Urine RBC (Auto) NONE (0-2) /HPF U Epithel Cells (Auto) FEW (FEW) /HPF Urine Bacteria (Auto) RARE (NEGATIVE) /HPF Urine Mucus (Auto) SLIGHT (NEGATIVE) /HPF Urine Culture Reflexed YES (NO) Urine Glucose NEGATIVE (NEGATIVE) mg/dL 06/17/20 Range/Units 12:47 WBC (4.0-10.5) K/mm3 RBC (4.1-5.4) M/mm3 Hgb (12.0-16.0) gm/dl Hct (35-47) % MCV (78-100) fl MCH (26-32) pg MCHC (32-36) g/dl RDW (11.5-14.0) % Plt Count (150-450) K/mm3 MPV (7.5-11.0) fl Gran % (36.0-66.0) % Eos # (Auto) (0-0.5) Absolute Lymphs (auto) (1.0-4.6) Absolute Monos (auto) (0.0-1.3) Lymphocytes % (24.0-44.0) % Monocytes % (0.0-12.0) % Eosinophils % (0.00-5.0) % Basophils % (0.0-0.4) % Absolute Granulocytes (1.4-6.9) Basophils # (0-0.4) Sodium 134 L (137-145) mmol/L Potassium 3.5 (3.5-5.1) mmol/L Chloride 105 (98-107) mmol/L Carbon Dioxide 21 L (22-30) mmol/L Anion Gap 12.0 (5-15) MEQ/L BUN 4 L (7-17) mg/dL Creatinine 0.41 L (0.52-1.04) mg/dL Estimated GFR > 60.0 ML/MIN Glucose 86 (74-106) mg/dL Lactic Acid (0.4-2.0) Calcium 9.7 (8.4-10.2) mg/dL Total Bilirubin 0.70 (0.2-1.3) mg/dL AST 24 (14-36) U/L ALT 15 (0-35) U/L Alkaline Phosphatase 47 (38-126) U/L Serum Total Protein 7.7 (6.3-8.2) g/dL Albumin 4.2 (3.5-5.0) g/dL Urine Color (YELLOW) Urine Appearance (CLEAR) Urine pH (5-6) Ur Specific [place] (1.005-1.025) Urine Protein (Negative) Urine Ketones (NEGATIVE) Urine Blood (0-5) Romeo/ul Urine Nitrite (NEGATIVE) Urine Bilirubin (NEGATIVE) Urine Urobilinogen (0-1) mg/dL Ur Leukocyte Esterase (NEGATIVE) Urine WBC (Auto) (0-5) /HPF Urine RBC (Auto) (0-2) /HPF U Epithel Cells (Auto) (FEW) /HPF Urine Bacteria (Auto) (NEGATIVE) /HPF Urine Mucus (Auto) (NEGATIVE) /HPF Urine Culture Reflexed (NO) Urine Glucose (NEGATIVE) mg/dL - Progress Progress: improved Progress Note: 06/17/20 14:44 IVF, labs, zofran IV. Pt slightly better. REglan IV. Pt much better. Will Rx Reglan for home. COVID test pending. 06/17/20 14:45 FHT 156 using bedside US. Discussed with Dr.: Juancarlos Counseled pt/family regarding: lab results, diagnosis, need for follow-up - Departure Departure Disposition: Home Clinical Impression: Viral syndrome, Hyperemesis arising during Condition: Stable Critical Care Time: No Referrals: ANGELA WILLIAMSON MD [Primary Care Provider] - Instructions: Nausea and Vomiting of (DC) Additional Instructions: Monitor symptoms closely. Drink plenty of fluids. Take nausea medication as needed. Try to take the medication before you end of vomiting. Follow-up with Dr. Williamson next week. Return to ER if worse. Prescriptions: Nitrofurantoin Macro 100 mg [Macrobid 100MG Capsule] 100 mg PO BID 7 Days #14 cap Metoclopramide HCl 10 mg [Reglan 10 MG] 10 mg PO Q4-6HPRN PRN #14 tablet PRN Reason: Nausea
[2020-06-17 13:24] LABS: ALBUMIN 4.2 g/dL (3.5-5.0); ALKALINE PHOSPHATASE 47 U/L (38-126); BLOOD UREA NITROGEN 4 mg/dL (7-17); CHLORIDE 105 mmol/L (98-107); Calcium 9.7 mg/dL (8.4-10.2); Carbon Dioxide 21 mmol/L (22-30); Creatinine 1 0.41 mg/dL (0.52-1.04); EST GLOMERULAR FILTRATION RATE > 60.0 ML/MIN; Glucose 86 mg/dL (74-106); Potassium 3.5 mmol/L (3.5-5.1); SGOT/AST 24 U/L (14-36); SGPT/ALT 15 U/L (0-35); SODIUM 134 mmol/L (137-145); Total Protein 7.7 g/dL (6.3-8.2)
[2020-06-17] MEDS ORDERED: Reglan 10 MG/2 ML IV ONE (14:05)
[2020-06-17] MEDS ORDERED: Reglan 10 MG/2 ML ONE (14:06)
[2020-06-17 14:14] LABS: Appearance SLIGHTLY CLOUDY (CLEAR); Bacteria RARE /HPF (NEGATIVE); Bilirubin NEGATIVE (NEGATIVE); Blood NEGATIVE Ery/ul (0-5); Epithelial Cells FEW /HPF (FEW); Glucose NEGATIVE (NEGATIVE); Ketones TRACE (NEGATIVE); Leukocyte Esterase LARGE (NEGATIVE); Mucus SLIGHT /HPF (NEGATIVE); Nitrite NEGATIVE (NEGATIVE); Protein,Urine Dip NEGATIVE (Negative); Specific Gravity 1.021 (1.005-1.025); Urobilinogen NEGATIVE mg/dL (0-1)
[2020-06-17 14:42] VITALS: O2SAT 94
[2020-06-17 14:43] VITALS: BP 107/64; PULSE 72
== END 2020-06-17 14:48 | disposition home or self-care (01) ==
LOC: ED 12:40
DX: O21.0 Mild hyperemesis gravidarum (principal); Z3A.14 14 weeks gestation of pregnancy; B34.9 Viral infection, unspecified; Z79.899 Other long term (current) drug therapy
CPT/HCPCS: 36000; 36415; 80053; 81001; 83605; 85025; 87086; 96360; 96374; 96375; 99284; J2405

== ENCOUNTER 2020-09-05 09:12 | Observation (INO) | payer OTHER ==
[2020-09-05 10:12] VITALS: BP 121/63; PULSE 77; O2SAT 98
[2020-09-05 10:40] LABS: Absolute Neutrophil Ct (ANC) 7.84 (1.4-6.9); BASOPHIL % 0.1 % (0.0-0.4); Basophil (Absolute #) 0.01 (0-0.4); Eosinophil % 0.7 % (0.00-5.0); Eosinophil (Absolute #) 0.07 (0-0.5); Hematocrit 32.4 % (35-47); Hemoglobin 10.6 gm/dl (12.0-16.0); Lymphocyte (Absolute #) 1.04 (1.0-4.6); Lymphocytes % 10.8 % (24.0-44.0); Mean Cell Volume 93.9 fl (78-100); Mean Corpuscular Hemoglobin 30.7 pg (26-32); Mean Corpuscular Hgb Concent. 32.7 g/dl (32-36); Mean Platelet Volume 12.1 fl (7.5-11.0); Monocyte (Absolute #) 0.68 (0.0-1.3); Monocytes % 7.1 % (0.0-12.0); Neutrophil % 81.3 % (36.0-66.0); Platelet Count 173 K/mm3 (150-450); Red Blood Count 3.45 M/mm3 (4.1-5.4); Red Cell Distribution Width 12.9 % (11.5-14.0); White Blood Count 9.6 K/mm3 (4.0-10.5)
[2020-09-05 10:54] LABS: ALBUMIN 3.4 g/dL (3.5-5.0); ALKALINE PHOSPHATASE 60 U/L (38-126); AMYLASE 46 U/L (30-110); ANION GAP 8.6 MEQ/L (5-15); BLOOD UREA NITROGEN 4 mg/dL (7-17); CHLORIDE 106 mmol/L (98-107); Calcium 8.7 mg/dL (8.4-10.2); Carbon Dioxide 23 mmol/L (22-30); Creatinine 1 0.37 mg/dL (0.52-1.04); EST GLOMERULAR FILTRATION RATE > 60.0 ML/MIN; Glucose 87 mg/dL (74-106); Potassium 3.6 mmol/L (3.5-5.1); SGOT/AST 21 U/L (14-36); SGPT/ALT 11 U/L (0-35); SODIUM 134 mmol/L (137-145); Total Protein 6.4 g/dL (6.3-8.2)
--- NOTE | 2020-09-05 10:58 | XRAY ---
Indication: Epigastric pain. 25 weeks . Two-dimensional gallbladder sonogram performed. Comparison: None Gallbladder normally distended without gallstones, wall thickening, or pericholecystic fluid. Common bile duct measures 3.6 mm. Remaining visualized pancreas, liver, and right kidney sonographically normal. Right kidney measures 10.4 cm in length. No ascites. Impression: Negative gallbladder sonogram.
--- NOTE | 2020-09-05 11:00 | XRAY ---
Indication: Abdomen pain. Abruption. 2-dimensional OB ultrasound performed. Comparison: August 05, 2020. Again there is a single viable intrauterine now in cephalic presentation. heart rate 149 BPM. anatomy previously documented. Again anterior placenta without abruption/previa. Cervical length is 3.3 cm. BPD measures 6.17 cm corresponding to 25 weeks 0 days. HC measures 23.01 cm corresponding to 25 weeks 0 days. AC measures 21.04 cm corresponding to 25 weeks 4 days. FL measures 4.97 cm corresponding to 26 weeks 5 days. CHILANGO is 15.4 cm. Impression: Again single viable intrauterine with mean gestational age 25 weeks 4 days. Normal progression of . No new/acute findings.
[2020-09-05 11:25] LABS: Appearance SLIGHTLY CLOUDY (CLEAR); Bacteria RARE /HPF (NEGATIVE); Bilirubin NEGATIVE (NEGATIVE); Blood NEGATIVE Ery/ul (0-5); Epithelial Cells RARE /HPF (FEW); Glucose NEGATIVE (NEGATIVE); Ketones NEGATIVE (NEGATIVE); Leukocyte Esterase SMALL (NEGATIVE); Mucus SLIGHT /HPF (NEGATIVE); Nitrite NEGATIVE (NEGATIVE); Protein,Urine Dip NEGATIVE (Negative); Urobilinogen NEGATIVE mg/dL (0-1)
== END 2020-09-05 12:25 | disposition home or self-care (01) ==
LOC: MED SURG 09:12
PROVIDERS: ADMIT Family Medicine; ATTEND Family Medicine
DX: Z34.82 Encounter for supervision of other normal pregnancy, second trimester (principal); Z3A.25 25 weeks gestation of pregnancy
CPT/HCPCS: 36415; 76705; 76805; 80053; 81001; 82150; 83690; 85025; G0378

== ENCOUNTER 2020-10-26 01:10 | Observation (INO) | payer OTHER ==
[2020-10-26 01:53] LABS: Amphetamine,Urine NEGATIVE (NEGATIVE); Barbiturate,Urine NEGATIVE (NEGATIVE); Benzodiazepine,Urine NEGATIVE (NEGATIVE); Cocaine,Urine NEGATIVE (NEGATIVE); Methadone,Urine NEGATIVE (NEGATIVE); Opiate,Urine NEGATIVE (NEGATIVE); PCP,Urine NEGATIVE (NEGATIVE); THC,Urine NEGATIVE (NEGATIVE)
[2020-10-26 01:57] LABS: Amourphous Crystal MODERATE /HPF (NEGATIVE); Appearance CLOUDY (CLEAR); Bilirubin NEGATIVE (NEGATIVE); Blood NEGATIVE Ery/ul (0-5); Epithelial Cells RARE /HPF (FEW); Glucose NEGATIVE (NEGATIVE); Ketones NEGATIVE (NEGATIVE); Leukocyte Esterase LARGE (NEGATIVE); Nitrite NEGATIVE (NEGATIVE); Protein,Urine Dip 30 (Negative); Specific Gravity 1.021 (1.005-1.025); Urobilinogen 4 mg/dL (0-1)
[2020-10-26] MEDS ORDERED: Lactated Ringers 1,000 ML IV ONE (02:09)
[2020-10-26] MEDS ORDERED: ROCEPHIN 1 Gm-D5w 50 ml Bag** 1 G/50 ML IVPB IV SCH (02:10)
[2020-10-26] MEDS ORDERED: BRETHINE 1 MG/ML SQ ONE (02:11)
[2020-10-26] MEDS ORDERED: ROCEPHIN 1 Gm-D5w 50 ml Bag** 1 G/50 ML IVPB IV ONE (02:23)
[2020-10-26 08:27] VITALS: BP 104/58; PULSE 78; O2SAT 98
== END 2020-10-26 08:10 | disposition home or self-care (01) ==
LOC: OB 01:10
PROVIDERS: ADMIT Family Medicine; ATTEND Family Medicine
DX: O60.03 Preterm labor without delivery, third trimester (principal); Z3A.32 32 weeks gestation of pregnancy
CPT/HCPCS: 80307; 81001; 87086; G0378; J0696

== ENCOUNTER 2020-12-05 23:53 | Observation (INO) | payer OTHER ==
[2020-12-06 00:23] VITALS: BP 112/66; PULSE 88
[2020-12-06 00:42] LABS: Appearance CLEAR (CLEAR); Bilirubin NEGATIVE (NEGATIVE); Blood NEGATIVE Ery/ul (0-5); Glucose NEGATIVE (NEGATIVE); Ketones NEGATIVE (NEGATIVE); Leukocyte Esterase NEGATIVE (NEGATIVE); Mucus SLIGHT /HPF (NEGATIVE); Nitrite NEGATIVE (NEGATIVE); Protein,Urine Dip NEGATIVE (Negative); Specific Gravity 1.014 (1.005-1.025); Urobilinogen 2 mg/dL (0-1)
[2020-12-06 00:55] LABS: Amphetamine,Urine NEGATIVE (NEGATIVE); Barbiturate,Urine NEGATIVE (NEGATIVE); Benzodiazepine,Urine NEGATIVE (NEGATIVE); Cocaine,Urine NEGATIVE (NEGATIVE); Methadone,Urine NEGATIVE (NEGATIVE); Opiate,Urine NEGATIVE (NEGATIVE); PCP,Urine NEGATIVE (NEGATIVE); THC,Urine NEGATIVE (NEGATIVE)
== END 2020-12-06 02:20 | disposition home or self-care (01) ==
LOC: OB 23:53 → UNDOADMOB 23:53 → UNDODISOB 12-06 02:20
PROVIDERS: ADMIT Family Medicine; ATTEND Family Medicine
DX: Z34.83 Encounter for supervision of other normal pregnancy, third trimester (principal); Z3A.38 38 weeks gestation of pregnancy
CPT/HCPCS: 80307; 81001; G0378

== ENCOUNTER 2020-12-13 10:17 | Inpatient (IN) | payer OTHER ==
[2020-12-13] MEDS ORDERED: Zofran 4 MG/2 ML VIAL IV PRN (17:00)
[2020-12-13] MEDS ORDERED: Cervidil 10 MG VAG SCH (17:00)
[2020-12-13] MEDS ORDERED: STADOL 2 MG IV PRN (17:00)
[2020-12-13 18:34] LABS: Absolute Neutrophil Ct (ANC) 9.37 (1.4-6.9); BASOPHIL % 0.1 % (0.0-0.4); Basophil (Absolute #) 0.01 (0-0.4); Eosinophil % 0.4 % (0.00-5.0); Eosinophil (Absolute #) 0.04 (0-0.5); Hematocrit 30.5 % (35-47); Hemoglobin 9.4 gm/dl (12.0-16.0); Lymphocyte (Absolute #) 1.32 (1.0-4.6); Lymphocytes % 11.7 % (24.0-44.0); Mean Cell Volume 81.1 fl (78-100); Mean Corpuscular Hgb Concent. 30.8 g/dl (32-36); Mean Platelet Volume 11.7 fl (7.5-11.0); Monocyte (Absolute #) 0.52 (0.0-1.3); Monocytes % 4.6 % (0.0-12.0); Neutrophil % 83.2 % (36.0-66.0); Platelet Count 213 K/mm3 (150-450); Red Blood Count 3.76 M/mm3 (4.1-5.4); Red Cell Distribution Width 14.4 % (11.5-14.0); White Blood Count 11.3 K/mm3 (4.0-10.5)
[2020-12-13 19:00] LABS: Amphetamine,Urine NEGATIVE (NEGATIVE); Barbiturate,Urine NEGATIVE (NEGATIVE); Benzodiazepine,Urine NEGATIVE (NEGATIVE); Cocaine,Urine NEGATIVE (NEGATIVE); Methadone,Urine NEGATIVE (NEGATIVE); Opiate,Urine NEGATIVE (NEGATIVE); PCP,Urine NEGATIVE (NEGATIVE); THC,Urine NEGATIVE (NEGATIVE)
[2020-12-13] MEDS ORDERED: Lactated Ringers 1,000 ML IV ONE ×2 (19:39→20:00)
[2020-12-13] MEDS ORDERED: XYLOCAINE 1% HCL 20 ML MDV ONE (19:56)
[2020-12-13] MEDS ORDERED: OB EPIDURAL NAROPIN/SUFENTANIL IN NACL EPIDURAL PRN (20:00)
[2020-12-13] MEDS ORDERED: Ephedrine Sulfate 50 MG/ML IV PRN (20:00)
[2020-12-13] MEDS: Nubain 10 MG/ML IV PRN (20:18)
[2020-12-13] MEDS: Lactated Ringers 1,000 ML IV SCH (20:23)
[2020-12-13 20:38] LABS: Slide Review 1 YES
[2020-12-14] MEDS: Nubain 10 MG/ML IV PRN ×2 (00:39→04:47)
[2020-12-14] MEDS ORDERED: PITOCIN 30 UNITS/ LR 500 ML 30 UNITS/500 ML IV.SOLN. IV SCH (06:00)
[2020-12-14] MEDS ORDERED: Lactated Ringers 1,000 ML IV SCH (06:00)
[2020-12-14] MEDS ORDERED: BRETHINE 1 MG/ML SQ PRN (06:00)
[2020-12-14] MEDS: Lactated Ringers 1,000 ML IV SCH ×3 (07:21→20:39)
[2020-12-14] MEDS ORDERED: XYLOCAINE 1% HCL 20 ML MDV IJ PRN (08:00)
[2020-12-14] MEDS ORDERED: Dermoplast Spray TP PRN (12:31)
[2020-12-14] MEDS ORDERED: TUCKS TP PRN (12:31)
[2020-12-14] MEDS ORDERED: Adacel Vial IM ONE (12:31)
[2020-12-14] MEDS ORDERED: LANSINOH 40 GM TOP PRN (12:31)
[2020-12-14] MEDS ORDERED: NORCO 5/325 MG PO PRN (12:31)
[2020-12-14] MEDS: MOTRIN 400 MG PO PRN ×2 (14:42→21:09)
[2020-12-14] MEDS: TYLENOL EXTRA STRENGTH 500 MG PO PRN (17:34)
[2020-12-14] MEDS: PITOCIN 30 UNITS/ LR 500 ML 30 UNITS/500 ML IV.SOLN. IV SCH ×2 (20:38→20:39)
[2020-12-14] MEDS: Colace 100 MG PO SCH (21:09)
[2020-12-15] MEDS: TYLENOL EXTRA STRENGTH 500 MG PO PRN ×2 (00:07→19:41)
[2020-12-15] MEDS: MOTRIN 400 MG PO PRN ×3 (03:42→19:42)
[2020-12-15 05:26] LABS: Absolute Neutrophil Ct (ANC) 5.59 (1.4-6.9); BASOPHIL % 0.1 % (0.0-0.4); Basophil (Absolute #) 0.01 (0-0.4); Eosinophil % 0.7 % (0.00-5.0); Eosinophil (Absolute #) 0.06 (0-0.5); Hematocrit 27.4 % (35-47); Hemoglobin 8.1 gm/dl (12.0-16.0); Lymphocytes % 23.7 % (24.0-44.0); Mean Cell Volume 82.8 fl (78-100); Mean Corpuscular Hemoglobin 24.5 pg (26-32); Mean Corpuscular Hgb Concent. 29.6 g/dl (32-36); Monocyte (Absolute #) 0.79 (0.0-1.3); Monocytes % 9.3 % (0.0-12.0); Neutrophil % 66.2 % (36.0-66.0); Platelet Count 166 K/mm3 (150-450); Red Blood Count 3.31 M/mm3 (4.1-5.4); Red Cell Distribution Width 14.3 % (11.5-14.0); White Blood Count 8.5 K/mm3 (4.0-10.5)
[2020-12-15 09:25] LABS: HBsAg Screen Negative (Negative)
[2020-12-15] MEDS ORDERED: M-M-R II Vaccine With Diluent SQ ONE (10:00)
[2020-12-15] MEDS: FERREX 150 PO SCH (10:24)
[2020-12-15] MEDS: Colace 100 MG PO SCH ×2 (10:24→21:45)
[2020-12-16] MEDS: TYLENOL EXTRA STRENGTH 500 MG PO PRN ×2 (00:27→05:20)
[2020-12-16] MEDS: MOTRIN 400 MG PO PRN ×2 (01:43→09:09)
[2020-12-16 02:20] VITALS: O2SAT 98
--- NOTE | 2020-12-16 08:21 | PCM.DS ---
Discharge Summary Date of Admission: 12/14/20 10:00 Admitting Physician: ANGELA WILLIAMSON Consults: Consults on Case 12/13/20 20:00 Notify Anesthesia Provider PRN Primary Care Provider: ANGELA WILLIAMSON Allergies Allergies latex Allergy (Verified 12/13/20 19:44) Hospital Summary - Hospital Course Hospital Course: patient had uncomplicated term induced at 39wks, no complications with delivery or . mild lochia, pain controlled with tylenol/motrin and feels well. - Vitals & Intake/Output Vital Signs: Vital Signs Temperature 97.4 F 12/16/20 02:00 Pulse Rate 63 12/16/20 02:00 Respiratory Rate 20 12/16/20 02:00 Blood Pressure 111/56 12/16/20 02:00 O2 Sat by Pulse Oximetry 98 12/16/20 02:00 Intake & Output: Intake & Output 12/13/20 12/14/20 12/15/20 12/16/20 11:59 11:59 11:59 11:59 Intake Total 3437 3015 3450 Output Total 900 300 Balance 4617 8495 3450 Weight 77.111 kg - Lab Result Diagrams: 12/15/20 04:40 Lab Results-Last 24 Hrs: Lab Results-Last 24 Hours 12/13/20 Range/Units 17:00 Hep Bs Antigen Negative (Negative) Discharge Exam General Appearance: no apparent distress, alert Respiratory Exam: normal breath sounds, lungs clear, No respiratory distress Cardiovascular Exam: regular rate/rhythm, normal heart sounds Gastrointestinal/Abdomen Exam: soft, No tenderness, No mass Extremity Exam: normal inspection, normal range of motion Skin Exam: normal color, warm, dry Final Diagnosis/Problem List - Final Discharge Diagnosis/Problem (1) Normal vaginal delivery Current Visit: Yes Status: Acute Code(s): O80 - ENCOUNTER FOR FULL-TERM UNCOMPLICATED DELIVERY - Discharge Disposition: Home, Self-Care Condition: Stable Prescriptions: Continue Vits W-Ca,Fe,FA(<1Mg) [] 1 tab PO DAILY Ferrous Sulfate 325 mg [Feosol 325 mg] 325 mg PO DAILY Instructions: Labor Induction, Oxytocin Follow up with: ANGELA WILLIAMSON MD [Primary Care Provider] -
[2020-12-16] MEDS: Colace 100 MG PO SCH (09:09)
[2020-12-16] MEDS: FERREX 150 PO SCH (09:09)
[2020-12-16 13:06] VITALS: BP 109/60; PULSE 58
== END 2020-12-16 12:45 | disposition home or self-care (01) | DRG 807 ==
LOC: OB 16:46 → OBSVTOIN 12-14 10:00 → MED SURG 12-15 20:06
PROVIDERS: ADMIT Family Medicine; ATTEND Family Medicine
PROC: 10E0XZZ Delivery of Products of Conception, External Approach (ICD-10-PCS; principal; 2020-12-14)
DX: O69.0XX0 Labor and delivery complicated by prolapse of cord, not applicable or unspecified (principal); Z37.0 Single live birth; Z3A.39 39 weeks gestation of pregnancy
CPT/HCPCS: 36415; 80307; 81003; 85025; 87340; 90471; 90707; 90715; G0378; J2300; J2590; J2795; A9270-GY

== ENCOUNTER 2020-12-19 13:49 | Emergency (ER) | payer OTHER ==
--- NOTE | 2020-12-19 14:40 | ERPHSYRPT ---
- History of Present Illness Source: patient Exam Limitations: no limitations Patient Subjective Stated Complaint: pt reports she is 5 days post , vaginal delivery, states since yesterday shes had an increase of vaginal bleeding and clots. pt reports every time she stands she feels blood pooling and needs to change her pad. pt states her clots are sometimes stringy and larger than a quarter. pt also reports some urinary frequency. pt also states she has some lower mid abdominal pain that radiates to her low back. Triage Nursing Assessment: pt is aox3, afebrile, pupils perrl, resps easy and non labored, radial pulses strong and equal, cap refill < 3 seconds, pt abd soft tender to the low mid abdomen, pt skin pink warm dry. pt changed pad at time of arrival. Physician History: [id number] s/p vag delivery on 12/14/20 presents w increased vag bleeding x1 day. Delivery term and uncomplicated. Timing/Duration: yesterday Activites at Onset: rest Quality: cramping Onset Location: suprapubic Pain Radiation: back Severity of Pain-Max: moderate Severity of Pain-Current: mild Prior abdominal problems: other (Vag delivery 12/14/20) Modifying Factors: Improves With: nothing Associated Symptoms: other (Vag bleeding) Allergies/Adverse Reactions: latex Allergy (Verified 12/19/20 14:28) Home Medications: Vits W-Ca,Fe,FA(<1Mg) [] 1 tab PO DAILY 06/17/20 [History] Ferrous Sulfate 325 mg [Feosol 325 mg] 325 mg PO DAILY 12/13/20 [History] Hx Tetanus, Diphtheria Vaccination/Date Given: Yes Hx Influenza Vaccination/Date Given: No Hx Pneumococcal Vaccination/Date Given: No Travel Risk - International Travel Have you traveled outside of the country in past 3 weeks: No - Coronavirus Screening Are you exhibiting any of the following symptoms?: No Close contact with a COVID-19 positive Pt in past 14-21 Days: No - Vaccine Status Have you recieved a Covid-19 vaccination: No - Review of Systems Constitutional: No Symptoms Eyes: No Symptoms Ears, Nose, & Throat: No Symptoms Respiratory: No Symptoms Cardiac: No Symptoms Abdominal/Gastrointestinal: No Symptoms Genitourinary Symptoms: No Symptoms, Vaginal Bleeding Musculoskeletal: No Symptoms Skin: No Symptoms Neurological: No Symptoms Psychological: No Symptoms Endocrine: No Symptoms Hematologic/Lymphatic: No Symptoms Immunological/Allergic: No Symptoms - Past Medical History Pertinent Past Medical History: Yes Other Medical History: hx of ectopic 2 yrs ago on lt - Past Surgical History Past Surgical History: Yes Female Surgical History: Other Other Surgical History: lt fallopian tube removed after ectopic - Social History Smoking Status: Former smoker Exposure to second hand smoke: No Drug Use: none Patient Lives Alone: Yes Significant Family History: no pertinent family hx - Female History Hx Now: No - Nursing Vital Signs Nursing Vital Signs: Initial Vital Signs Temperature 98.8 F 12/19/20 14:01 Pulse Rate 85 12/19/20 14:01 Respiratory Rate 18 12/19/20 14:01 Blood Pressure 123/82 12/19/20 14:01 O2 Sat by Pulse Oximetry 97 12/19/20 14:01 Pain Scale Pain Intensity 7 - Physical Exam General Appearance: no apparent distress Eye Exam: PERRL/EOMI, eyes nml inspection Ears, Nose, Throat Exam: normal ENT inspection, TMs normal, pharynx normal, moist mucous membranes Neck Exam: normal inspection, non-tender, supple Respiratory Exam: normal breath sounds, lungs clear, airway intact, No res piratory distress Cardiovascular Exam: regular rate/rhythm, normal heart sounds, No murmur Gastrointestinal/Abdomen Exam: soft, tenderness (Mild supra-pubic TTP wo guarding or rebound) Pelvic Exam: vaginal bleeding (Small amount of dried dark blood wo active bleeding) Extremity Exam: normal inspection, normal range of motion Neurologic Exam: alert, oriented x 3, cooperative, engineer chief II-XII nml as tested, normal mood/affect Skin Exam: normal color Lymphatic Exam: No adenopathy SpO2 Interpretation: normal SpO2: 97 O2 Delivery: Room Air - Radiology Ultrasound Exam Pelvis Ultrasound: discussed w/radiologist (Blood vs retained products of conception) Ordered Tests: Active Orders 24 hr Category Date Time Status PELVIS TRANS VAGINAL [US] Stat Exams 12/19/20 14:20 Completed CBC W DIFF Stat Lab 12/19/20 15:15 Completed UA W/RFX UR CULTURE Stat Lab 12/19/20 14:25 Completed Medication Summary Discontinued Medications Generic Name Dose Route Start Last Admin Trade Name Freq PRN Reason Stop Dose Admin Acetaminophen 1,000 mg 12/19/20 16:06 12/19/20 16:28 Tylenol Extra Strength 500 Mg PO 12/19/20 16:07 1,000 mg STAT ONE Administration Acetaminophen Confirm 12/19/20 16:27 Tylenol Extra Strength 500 Mg Administered 12/19/20 16:28 Dose 1,000 mg .ROUTE .STK-MED ONE Lab/Rad Data: Laboratory Result Diagrams 12/19/20 15:15 Laboratory Results 12/19/20 12/19/20 Range/Units 15:15 14:25 WBC 6.5 (4.0-10.5) K/mm3 RBC 4.06 L (4.1-5.4) M/mm3 Hgb 10.1 L (12.0-16.0) gm/dl Hct 33.4 L (35-47) % MCV 82.3 (78-100) fl MCH 24.9 L (26-32) pg MCHC 30.2 L (32-36) g/dl RDW 14.6 H (11.5-14.0) % Plt Count 251 (150-450) K/mm3 MPV 11.1 H (7.5-11.0) fl Gran % 63.8 (36.0-66.0) % Eos # (Auto) 0.25 (0-0.5) Absolute Lymphs (auto) 1.39 (1.0-4.6) Absolute Monos (auto) 0.69 (0.0-1.3) Lymphocytes % 21.5 L (24.0-44.0) % Monocytes % 10.6 (0.0-12.0) % Eosinophils % 3.9 (0.00-5.0) % Basophils % 0.2 (0.0-0.4) % Absolute Granulocytes 4.14 (1.4-6.9) Basophils # 0.01 (0-0.4) Urine Color YELLOW (YELLOW) Urine Appearance CLEAR (CLEAR) Urine pH 6.0 (5-6) Ur Specific [place] 1.014 (1.005-1.025) Urine Protein NEGATIVE (Negative) Urine Ketones NEGATIVE (NEGATIVE) Urine Blood MODERATE (0-5) Romeo/ul Urine Nitrite NEGATIVE (NEGATIVE) Urine Bilirubin NEGATIVE (NEGATIVE) Urine Urobilinogen NEGATIVE (0-1) mg/dL Ur Leukocyte Esterase NEGATIVE (NEGATIVE) Urine WBC (Auto) NONE (0-5) /HPF Urine RBC (Auto) NONE (0-2) /HPF U Epithel Cells (Auto) RARE (FEW) /HPF Urine Bacteria (Auto) NONE (NEGATIVE) /HPF Urine Mucus (Auto) SLIGHT (NEGATIVE) /HPF Urine Culture Reflexed NO (NO) Urine Glucose NEGATIVE (NEGATIVE) mg/dL - Progress Progress Note: 12/19/20 15:[address] Shane, wants to start Lysteda 650mg 2tabs tid x 5 days/believes that probably just blood in uterus after reviewing US results. Lysteda safe in breast feeding 12/19/20 20:22 Discussed with : Trina Counseled pt/family regarding: lab results, need for follow-up, rad results - Departure Departure Disposition: Home Clinical Impression: bleeding Condition: Stable Critical Care Time: No Referrals: ANGELA WILLIAMSON MD [Primary Care Provider] - Additional Instructions: Follow up with Dr. Williamson or Dr. Shane Start Lysteda 2tabs 3 times a day for 5 days Return to ER for increased bleeding/Increased pain/temperature greater than 100.5 Prescriptions: Tranexamic Acid [Lysteda] 1,300 mg PO TID 5 Days #30 tablet
[2020-12-19 15:25] LABS: Appearance CLEAR (CLEAR); Bilirubin NEGATIVE (NEGATIVE); Blood MODERATE Ery/ul (0-5); Epithelial Cells RARE /HPF (FEW); Glucose NEGATIVE (NEGATIVE); Ketones NEGATIVE (NEGATIVE); Leukocyte Esterase NEGATIVE (NEGATIVE); Mucus SLIGHT /HPF (NEGATIVE); Nitrite NEGATIVE (NEGATIVE); Protein,Urine Dip NEGATIVE (Negative); Specific Gravity 1.014 (1.005-1.025); Urobilinogen NEGATIVE mg/dL (0-1)
[2020-12-19 15:26] LABS: Absolute Neutrophil Ct (ANC) 4.14 (1.4-6.9); BASOPHIL % 0.2 % (0.0-0.4); Basophil (Absolute #) 0.01 (0-0.4); Eosinophil % 3.9 % (0.00-5.0); Eosinophil (Absolute #) 0.25 (0-0.5); Hematocrit 33.4 % (35-47); Hemoglobin 10.1 gm/dl (12.0-16.0); Lymphocyte (Absolute #) 1.39 (1.0-4.6); Lymphocytes % 21.5 % (24.0-44.0); Mean Cell Volume 82.3 fl (78-100); Mean Corpuscular Hemoglobin 24.9 pg (26-32); Mean Corpuscular Hgb Concent. 30.2 g/dl (32-36); Mean Platelet Volume 11.1 fl (7.5-11.0); Monocyte (Absolute #) 0.69 (0.0-1.3); Monocytes % 10.6 % (0.0-12.0); Neutrophil % 63.8 % (36.0-66.0); Platelet Count 251 K/mm3 (150-450); Red Blood Count 4.06 M/mm3 (4.1-5.4); Red Cell Distribution Width 14.6 % (11.5-14.0); White Blood Count 6.5 K/mm3 (4.0-10.5)
--- NOTE | 2020-12-19 15:34 | XRAY ---
Indication: Bleeding clots. 5 days. Two-dimensional transvaginal pelvic sonogram performed. Comparison: April 09, 2019. Uterus anteverted today measuring 13.2 x 6.9 x 8.8 cm. Myometrium homogeneous. Endometrial cavity demonstrates small pockets of hypoechogenicities presumed blood, largest 1.0 x 1.7 cm. Lower uterine segment demonstrates a heterogeneous echogenicity in the endometrial cavity measuring at least 1.6 x 2.3 cm, possible blood clots versus retained products of conception. Right ovary measures 3.3 x 1.1 x 3.3 cm and the left measures 2.3 x 1.7 x 2.6 cm. Normal perfusion bilaterally. No suspicious adnexal mass or free fluid. Impression: New heterogeneous endometrial cavity with pockets of fluid as detailed presumed blood/blood products or retained products of conception.
[2020-12-19] MEDS ORDERED: TYLENOL EXTRA STRENGTH 500 MG PO ONE (16:06)
[2020-12-19] MEDS ORDERED: TYLENOL EXTRA STRENGTH 500 MG ONE (16:27)
[2020-12-19 16:39] VITALS: BP 132/78; PULSE 76
[2020-12-19 20:23] VITALS: O2SAT 97
== END 2020-12-19 16:40 | disposition home or self-care (01) ==
LOC: ED 13:49
DX: O72.1 Other immediate postpartum hemorrhage (principal)
CPT/HCPCS: 36415; 76830; 81001; 85025; 99284; A9270-GY

== ENCOUNTER 2024-06-18 17:43 | Emergency (ER) | payer OTHER ==
[2024-06-18 17:53] VITALS: TEMP 98.2
--- NOTE | 2024-06-18 18:23 | ERPHSYRPT ---
- History of Present Illness Time Seen by Provider: 06/18/24 17:45 Historian: patient Exam Limitations: no limitations Patient Subjective Stated Complaint: DULL CP WITH CONSTANT RADIATION, DEEP, BURNING PAIN 7/10 IN RIGHT AXILLARY Triage Nursing Assessment: PT IS A/OX4, PT AMB PER SELF TO ROOM, PT CHANGED DRESSING GOWN PER SELF. PT SPEACH CLEAR, PT SKIN PINK WARM AND DRY, PT SENIES RESP DISTRESS, PT STATES SHE HAS SOME N/V WITH THE PAIN. [place] PAIN "ON TOP OF MY HEAD", "COMES AND GO WITH THE PAIN". PT DENIES VISION CHANGES. Physician History: 28-year-old female with history of anxiety presented in the ER with complaint of substernal chest pain. Patient describes this as a dull aching burning sensation which woke her up from sleep last night. Patient thought she was having heartburns, took Tums with minimal relief, reports some radiation to the right axilla. She applied pressure on the chest which made her feel better and she went back to sleep. This morning she took some more Tums and pain got better but still have some discomfort. Denies any palpitations or shortness of breath. No known sick contact. No history of coronary artery disease or chest pains in the past. Not taking any control pills, no long travel, lower leg swelling, no history of DVT PE/recent surgeries. Currently having minimal burning sensation substernally. Aspirin Treatment Today: no aspirin today Allergies/Adverse Reactions: latex Allergy (Verified 06/18/24 17:45) Home Medications: Sertraline HCl 200 mg PO DAILY 06/18/24 [History] Hx Tetanus, Diphtheria Vaccination/Date Given: Yes Hx Influenza Vaccination/Date Given: No Hx Pneumococcal Vaccination/Date Given: No Immunizations Up to Date: No Travel Risk - International Travel Have you traveled outside of the country in past 3 weeks: No - Emerging Infectious Disease Are you exhibiting symptoms associated with any current EIDs: No - Review of Systems Constitutional: No Symptoms Ears, Nose, & Throat: No Symptoms Respiratory: No Symptoms Cardiac: Chest Pain Abdominal/Gastrointestinal: No Symptoms Genitourinary Symptoms: No Symptoms Musculoskeletal: No Symptoms Neurological: No Symptoms Psychological: Anxiety Endocrine: No Symptoms Hematologic/Lymphatic: No Symptoms - Past Medical History Pertinent Past Medical History: Yes Neurological History: No Pertinent History ENT History: No Pertinent History Cardiac History: No Pertinent History Respiratory History: No Pertinent History Endocrine Medical History: No Pertinent History Musculoskeletal History: No Pertinent History GI Medical History: No Pertinent History History: No Pertinent History Psycho-Social History: Anxiety, Depression Female Reproductive Disorders: Other Other Medical History: hx of ectopic 2 yrs ago on lt, 2017 - Past Surgical History Past Surgical History: Yes Neuro Surgical History: No Pertinent History Cardiac: No Pertinent History Respiratory: No Pertinent History Gastrointestinal: No Pertinent History Genitourinary: No Pertinent History Musculoskeletal: No Pertinent History Female Surgical History: No Pertinent History, Other Other Surgical History: lt fallopian tube removed after ectopic , 2016 Significant Family History: no pertinent family hx - Female History Hx Last Menstrual Period: 05/27/24 Hx Now: No - Social History Smoking Status: Former smoker Exposure to second hand smoke: No Drug Use: none Patient Lives Alone: Yes - Social Determinants of Health Do you worry about a steady place to live?: No Do you have any problems with any of the following?: No known problems In the past 12 months,have you had to go without utilities?: No Transportation Issues: No Has anyone in your support network made you feel unsafe?: No Have you or anyone in your house had to go without enough: No - Nursing Vital Signs Nursing Vital Signs: Initial Vital Signs Temperature 98.2 F 06/18/24 17:44 Pulse Rate 75 06/18/24 17:44 Respiratory Rate 17 06/18/24 17:44 Blood Pressure 145/91 06/18/24 17:44 O2 Sat by Pulse Oximetry 99 06/18/24 17:44 Pain Scale Pain Intensity 2 - Physical Exam General Appearance: no apparent distress, alert, anxiety Eye Exam: PERRL/EOMI Ears, Nose, Throat Exam: normal ENT inspection Neck Exam: normal inspection, full range of motion Respiratory Exam: normal breath sounds, lungs clear Cardiovascular Exam: regular rate/rhythm, normal heart sounds Gastrointestinal/Abdomen Exam: soft, normal bowel sounds, No tenderness Extremity Exam: normal inspection Neurologic Exam: alert, oriented x 3, cooperative Skin Exam: normal color SpO2 Interpretation: normal SpO2: 99 O2 Delivery: Room Air - Course EKG Interpreted by Me: RATE (69), Sinus Rhythm, NORMAL AXIS, NORMAL INTERVALS, Other (Nonspecific T wave changes) Ordered Tests: Active Orders 24 hr Category Date Time Status Psychiatry Resident STAT Care 06/18/24 18:19 Completed EKG-ER Only STAT Care 06/18/24 18:19 Completed CHEST 1 VIEW (PORTABLE) Stat Exams 06/18/24 19:18 Taken CBC W DIFF Stat Lab 06/18/24 18:35 Completed CMP Stat Lab 06/18/24 18:35 Completed HCG QUALITATIVE, SERUM Stat Lab 06/18/24 18:35 Completed TROPONIN Q4H Lab 06/18/24 18:35 Completed Medication Summary Discontinued Medications Generic Name Dose Route Start Last Admin Trade Name Ekaterina PRN Reason Stop Dose Admin Al Hydrox/Mg Hydrox/Simethicone Confirm 06/18/24 18:31 Mag Hydrox/Al Hydrox/Simeth 30 Ml Udcup Administered 06/18/24 18:32 Dose 30 ml .ROUTE .STK-MED ONE Aspirin 324 mg 06/18/24 18:19 06/18/24 18:33 Aspirin 81 Mg Tab.Chew PO 06/18/24 18:20 324 mg STAT ONE Administration Aspirin Confirm 06/18/24 18:31 Aspirin 81 Mg Tab.Chew Administered 06/18/24 18:32 Dose 324 mg .ROUTE .STK-MED ONE Lidocaine HCl Confirm 06/18/24 18:31 Lidocaine Hcl 2% Viscous 15 Ml Udcup Administered 06/18/24 18:32 Dose 15 ml .ROUTE .STK-MED ONE Magnesium Hydroxide 45 ml 06/18/24 18:20 06/18/24 18:34 Mag Hydrx/Alum Hyd/Simeth/Lido 45 Ml Bottle PO 06/18/24 18:21 45 ml STAT ONE Administration Pantoprazole Sodium 40 mg 06/18/24 18:20 06/18/24 18:34 Protonix (Pantoprazole) 40 Mg Tablet PO 06/18/24 18:21 40 mg STAT ONE Administration Pantoprazole Sodium Confirm 06/18/24 18:31 Protonix (Pantoprazole) 40 Mg Tablet Administered 06/18/24 18:32 Dose 40 mg .ROUTE .STK-MED ONE Lab/Rad Data: Laboratory Result Diagrams 06/18/24 18:35 06/18/24 18:35 Laboratory Results 06/18/24 06/18/24 06/18/24 Range/Units 18:35 18:35 18:35 WBC (3.98-10.04) x10^3/uL RBC (3.93-5.22) x10^6/uL Hgb (11.2-15.7) g/dL Hct (34.1-44.9) % MCV (79.4-94.8) fL MCH (25.6-32.2) pg MCHC (32.2-35.5) g/dL RDW (11.7-14.4) % Plt Count (182-369) x10^3/uL MPV (9.4-12.3) fL Gran % (34.0-71.1) % Immature Gran % (Auto) (0.001-0.429) % Nucleat RBC Rel Count (0.00-0.2) % Eos # (Auto) (0.04-0.36) x10^3/uL Immature Gran # (Auto) (0.001-0.031) x10^3u/L Absolute Lymphs (auto) (1.18-3.74) x10^3/uL Absolute Monos (auto) (0.24-0.86) x10^3/uL Absolute Nucleated RBC (0.00-0.012) x10^3u/L Lymphocytes % (19.3-51.7) % Monocytes % (4.7-12.5) % Eosinophils % (0.7-5.8) % Basophils % (0.1-1.2) % Absolute Granulocytes (1.56-6.13) x10^3/uL Basophils # (0.01-0.08) x10^3/uL Sodium 138 (135-145) mmol/L Potassium 3.7 (3.5-5.1) mmol/L Chloride 103 (98-107) mmol/L Carbon Dioxide 27 (22-30) mmol/L Anion Gap 11.6 (5-15) MEQ/L BUN 9 (7-17) mg/dL Creatinine 0.76 (0.52-1.04) mg/dL Estimated GFR 110.1 ML/MIN Glucose 101 (74-106) mg/dL Calcium 9.4 (8.4-10.2) mg/dL Total Bilirubin 0.60 (0.2-1.3) mg/dL AST 31 (14-36) U/L ALT 26 (0-35) U/L Alkaline Phosphatase 59 (38-126) U/L Troponin I < 0.012 (0.000-0.033) ng/mL Serum Total Protein 7.2 (6.3-8.2) g/dL Albumin 4.3 (3.5-5.0) g/dL Serum HCG, Qual NEGATIVE (NEGATIVE) 06/18/24 Range/Units 18:35 WBC 8.7 (3.98-10.04) x10^3/uL RBC 4.30 (3.93-5.22) x10^6/uL Hgb 12.6 (11.2-15.7) g/dL Hct 37.7 (34.1-44.9) % MCV 87.7 (79.4-94.8) fL MCH 29.3 (25.6-32.2) pg MCHC 33.4 (32.2-35.5) g/dL RDW 12.8 (11.7-14.4) % Plt Count 236 (182-369) x10^3/uL MPV 12.0 (9.4-12.3) fL Gran % 66.5 (34.0-71.1) % Immature Gran % (Auto) 0.3 (0.001-0.429) % Nucleat RBC Rel Count 0.0 (0.00-0.2) % Eos # (Auto) 0.21 (0.04-0.36) x10^3/uL Immature Gran # (Auto) 0.03 (0.001-0.031) x10^3u/L Absolute Lymphs (auto) 1.81 (1.18-3.74) x10^3/uL Absolute Monos (auto) 0.84 (0.24-0.86) x10^3/uL Absolute Nucleated RBC 0.00 (0.00-0.012) x10^3u/L Lymphocytes % 20.9 (19.3-51.7) % Monocytes % 9.7 (4.7-12.5) % Eosinophils % 2.4 (0.7-5.8) % Basophils % 0.2 (0.1-1.2) % Absolute Granulocytes 5.75 (1.56-6.13) x10^3/uL Basophils # 0.02 (0.01-0.08) x10^3/uL Sodium (135-145) mmol/L Potassium (3.5-5.1) mmol/L Chloride (98-107) mmol/L Carbon Dioxide (22-30) mmol/L Anion Gap (5-15) MEQ/L BUN (7-17) mg/dL Creatinine (0.52-1.04) mg/dL Estimated GFR ML/MIN Glucose (74-106) mg/dL Calcium (8.4-10.2) mg/dL Total Bilirubin (0.2-1.3) mg/dL AST (14-36) U/L ALT (0-35) U/L Alkaline Phosphatase (38-126) U/L Troponin I (0.000-0.033) ng/mL Serum Total Protein (6.3-8.2) g/dL Albumin (3.5-5.0) g/dL Serum HCG, Qual (NEGATIVE) - Progress Progress: improved, re-examined Air Movement: good Progress Note: 06/18/24 19:40 28-year-old is evaluated in the ER for substernal burning sensations waking her up from sleep last night and having off-and-on since morning with partial relief after taking Tums. EKG is sinus rhythm with no ST elevations. She is given oral omeprazole and GI cocktail, on reevaluation her pain is completely resolved. Chest x-ray is negative for any acute cardiopulmonary findings reviewed by me pending official report. Normal white count, unremarkable chemistries and negative troponins. With patient's symptoms going on since last night I do not believe patient needs second troponin, she is low heart score. She is PERC negative. I would start her on omeprazole to go home, recommended outpatient follow-up. Discussed signs symptoms of worsening return to ER which she seems understanding. Stable for discharge. Blood Culture(s) Obtained: No Antibiotics given: No Counseled pt/family regarding: lab results, diagnosis, need for follow-up, rad results Medical Desision Making - Diagnostic Testing Diagnostic test were ordered, analyzed, and reviewed by me: Yes Radiological Interpretation: Interpreted by me, Reviewed by me - Risk of complications The pt has a mod risk of morbidity or mortality based on: Need for prescription drug management - Departure Departure Disposition: Home Clinical Impression: GERD with esophagitis, Atypical chest pain Condition: Stable Critical Care Time: No Referrals: WILLIAMSON,ANGELA JOSETTE, MD [Primary Care Provider] - Follow up/PCP as directed Instructions: Chest Pain (DC), Acid reflux and GERD in adults Additional Instructions: Do not take ibuprofen Aleve or any other NSAIDs. Take Tylenol as needed. Follow-up with primary care for reevaluation. Return to ER for any worsening. Prescriptions: Omeprazole 40 mg PO DAILY #30 cap
[2024-06-18] MEDS ORDERED: MAALOX ES 30 ML UNIT DOSE ONE (18:31)
[2024-06-18] MEDS ORDERED: Protonix 40MG Tablet ONE (18:31)
[2024-06-18] MEDS ORDERED: XYLOCAINE VISCOUS 2% 15 ML CUP ONE (18:31)
[2024-06-18] MEDS ORDERED: BABY ASPIRIN 81 MG CHEW ONE (18:31)
[2024-06-18] MEDS: BABY ASPIRIN 81 MG CHEW PO ONE (18:33)
[2024-06-18] MEDS: GI COCKTAIL 45 ML (Maalox/Lidocaine) PO ONE (18:34)
[2024-06-18] MEDS: Protonix 40MG Tablet PO ONE (18:34)
[2024-06-18 18:51] LABS: Absolute Neutrophil Ct (ANC) 5.75 x10^3/uL (1.56-6.13); BASOPHIL % 0.2 % (0.1-1.2); Basophil (Absolute #) 0.02 x10^3/uL (0.01-0.08); Eosinophil % 2.4 % (0.7-5.8); Eosinophil (Absolute #) 0.21 x10^3/uL (0.04-0.36); Hematocrit 37.7 % (34.1-44.9); Hemoglobin 12.6 g/dL (11.2-15.7); IMMATURE GRAN # 0.03 x10^3u/L (0.001-0.031); IMMATURE GRAN % 0.3 % (0.001-0.429); Lymphocyte (Absolute #) 1.81 x10^3/uL (1.18-3.74); Lymphocytes % 20.9 % (19.3-51.7); Mean Cell Volume 87.7 fL (79.4-94.8); Mean Corpuscular Hemoglobin 29.3 pg (25.6-32.2); Mean Corpuscular Hgb Concent. 33.4 g/dL (32.2-35.5); Monocyte (Absolute #) 0.84 x10^3/uL (0.24-0.86); Monocytes % 9.7 % (4.7-12.5); Neutrophil % 66.5 % (34.0-71.1); Platelet Count 236 x10^3/uL (182-369); Red Cell Distribution Width 12.8 % (11.7-14.4); White Blood Count 8.7 x10^3/uL (3.98-10.04)
[2024-06-18 18:57] LABS: ALBUMIN 4.3 g/dL (3.5-5.0); ANION GAP 11.6 MEQ/L (5-15); BILIRUBIN,TOTAL 0.6 mg/dL (0.2-1.3); Calcium 9.4 mg/dL (8.4-10.2); Creatinine 1 0.76 mg/dL (0.52-1.04); EST GLOMERULAR FILTRATION RATE 110.1 ML/MIN; Potassium 3.7 mmol/L (3.5-5.1); Total Protein 7.2 g/dL (6.3-8.2)
[2024-06-18 19:00] LABS: HCG SERUM TEST NEGATIVE (NEGATIVE)
[2024-06-18 19:26] VITALS: RESP 16
[2024-06-18 20:10] VITALS: BP 109/64; PULSE 65
[2024-06-18 23:06] VITALS: O2SAT 99
--- NOTE | 2024-06-19 08:51 | XRAY ---
Indication: Chest pain. Indigestion. Comparison: None Portable chest demonstrates normal heart, lungs, bony thorax with incidental tiny calcified granulomas.
== END 2024-06-18 20:15 | disposition home or self-care (01) ==
LOC: ED 17:43
DX: K21.00 Gastro-esophageal reflux disease with esophagitis, without bleeding (principal); R07.89 Other chest pain; Z79.899 Other long term (current) drug therapy
CPT/HCPCS: 36415; 71045; 80053; 84484; 84703; 85025; 93005; 93041; 99284; 99285; A9270-GY